=== PATIENT | male | born 1960 | race Caucasian/White ===

== ENCOUNTER → 2018-04-08 | Outpatient (CLI) | payer MEDICARE, BC ==
[~2018-04-08] MED LIST: ALPR-475 PO; ALPR0.5T10 PO; AMOX500T PO; ASPI-496 PO; ASPI81TA45 PO; BROM1.7D9 OP; CALC0.5C9 PO; CALC200T20 PO; CALC667C PO; CINA60TA PO; FLUO40CA9 PO; FURO20TA3 PO; GABA-826 PO; HYDR-3237 PO; LISI40TA PO; METO50TA82 PO; MINO2.5T PO; OXYC5CAP2 PO; SEVE800T8 PO; TIZA2TAB PO; [UNRECOGNIZED DRUG - OTHER] PO
== END | disposition home or self-care (01) ==
LOC: RAD 10:54
PROVIDERS: ATTEND Internal Medicine Cardiovascular Disease
DX: R06.02 Shortness of breath (principal)
CPT/HCPCS: 71046

== ENCOUNTER 2018-06-03 08:36 | Inpatient (IN) | payer MEDICARE, BC ==
[~2018-06-03] VITALS: Ht 185.4 cm; Wt 102.4 kg
--- NOTE | 2018-06-03 09:36 | NUR ---
HOUSING LIAISON: PT NOW VERBALIZES HE FEELS LIKE PASSING OUT. EKG COMPLETED.
--- NOTE | 2018-06-03 09:45 | NUR ---
PT TO ROOM, CONTACT WITH PT, 57 YR OLD MALE HERE WITH C/O "MY BLOOD PRESSURE IS VERY LOW. 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 TOOK OFF APPROX 3L LAST NIGHT. I WAS UNDER A BLANKET SHAKING. HAD 102 FEVER, TOOK 1000MG TYLENOL APPROX 6AM" PT ALSO WITH PAIN IN CHEST (BEGAN APPROX 0100) PT REPORTS "3 HEART VALVES WITH CALCIFICATION AND THE ONE THAT WORKS HAS A HOLE"
--- NOTE | 2018-06-03 10:19 | NUR ---
Patient states that he only produces a few drops of urine every other day. MD aware and UA canceled.
[2018-06-03] MEDS ORDERED: VANCOMYCIN 2,000 MG in SODIUM CHLORIDE 0.9% 500 ML IV ONE (10:30)
[2018-06-03] MEDS ORDERED: PIPERACILLIN/TAZO/PMX 3.375GM 50 ML IVPB ONE (10:30)
[2018-06-03] MEDS ORDERED: VANCOMYCIN PER PHARMACY MC ONE (10:30)
[2018-06-03] MEDS ORDERED: SODIUM CHLORIDE 0.9% 1,000ML IVBOLUS ONE ×3 (10:30→13:00)
[2018-06-03] MEDS ORDERED: PHARMACOKINETIC CONSULTATION MC ONE ×2 (10:30→14:30)
[2018-06-03 11:09] LABS: ALANINE AMINOTRANSFERASE 18 U/L (12-78); ALBUMIN 2.8 g/dL (3.4-5.0); ANION GAP 10 mmol/L (5-15); CALCIUM 9.4 mg/dL (8.5-10.1); CHLORIDE 90 mmol/L (98-107)
[2018-06-03 11:14] LABS: ALKALINE PHOSPHATASE 84 U/L (45-117); BILIRUBIN,TOTAL 0.4 mg/dL (0.2-1.0); TROPONIN I < 0.015 ng/mL (0.000-0.045)
--- NOTE | 2018-06-03 11:16 | NUR ---
BP improved after 500mL NS bolus. aware. No other needs.
[2018-06-03] MEDS ORDERED: PIPERACILLIN/TAZO/PMX 3.375GM 50 ML ONE (11:24)
[2018-06-03 11:35] LABS: CELLS COUNTED 7
[2018-06-03 11:36] LABS: MEAN CORPUSCULAR HEMOGLOBIN 30.7 pg (27.5-34.5); MEAN CORPUSCULAR HGB CONC 32.6 g/dL (33.2-36.2); MEAN CORPUSCULAR VOLUME 94.1 fL (81-97); MEAN PLATELET VOLUME 9.4 fL (7.4-10.4); PLATELET COUNT 78 x10^3/uL (130-400); RED BLOOD COUNT 2.71 x10^6/uL (4.38-5.82); RED CELL DISTRIBUTION WIDTH 15.4 % (9.4-14.8)
--- NOTE | 2018-06-03 11:37 | NUR ---
Zosyn hung and 500mL NS hung. No other needs.
[2018-06-03 11:47] LABS: MD YES
[2018-06-03 11:48] LABS: BAND#(MANUAL) 0.22 x10^3/uL; BANDS%(MANUAL) 2 % (0-7); BASOS#(MANUAL) 0.11 x10^3/uL (0-0.1); BASOS% (MANUAL) 1 % (0-1); EOS#(MANUAL) 0.11 x10^3/uL (0.0-0.4); EOS% (MANUAL) 1 % (1-7); LYMPH#(MANUAL) 0.56 x10^3/uL (1-3.4); LYMPHS% (MANUAL) 5 % (22-44); MONOS#(MANUAL) 0.56 x10^3/uL (0.3-2.7); MONOS% (MANUAL) 5 % (2-9); SEG#(MANUAL) 9.63 x10^3/uL (1.8-6.8); SEGS% (MANUAL) 86 % (42-75)
[2018-06-03 11:50] LABS: ANISOCYTOSIS 1+
[2018-06-03 11:58] LABS: <PLATELET ESTIMATE> DECREASED; LARGE PLATELETS 1+; OVALOCYTES 1+
--- NOTE | 2018-06-03 12:39 | NUR ---
Jorge camara. Mildly hypotensive after second bolus. No other needs.
[2018-06-03] MEDS ORDERED: AMLO-150 PO (12:43)
[2018-06-03] MEDS ORDERED: SODIUM CHLORIDE 0.9% 1,000 ML IV SCH (13:33)
--- NOTE | 2018-06-03 13:38 | NUR ---
Patient slightly more hypotenisve. Foot of bed elevated.
--- NOTE | 2018-06-03 13:49 | NUR ---
Report to MARISOL Hamilton.
--- NOTE | 2018-06-03 13:53 | NUR ---
BP improved. MD aware. MD states to hold 500ml NS bolus.
[2018-06-03] MEDS ORDERED: BISACODYL 10 MG SUPP PR PRN (14:00)
[2018-06-03] MEDS ORDERED: POLYETHYLENE GLYCOL 17 GM PACKET PO PRN (14:00)
[2018-06-03] MEDS ORDERED: VANCOMYCIN PER PHARMACY MC PRN (14:00)
[2018-06-03] MEDS ORDERED: ONDANSETRON ODT 4 MG PO PRN (14:00)
[2018-06-03] MEDS ORDERED: ONDANSETRON 2MG/ML, 2ML IVPush PRN (14:00)
[2018-06-03] MEDS ORDERED: PHARMACOKINETIC MONITORING MC PRN (14:30)
[2018-06-03] MEDS: HEPARIN 5,000 UNITS/ML, 1ML SQ SCH ×2 (14:46→23:07)
[2018-06-03] MEDS: MIDODRINE 5 MG TABLET PO SCH ×2 (14:46→20:33)
[2018-06-03] MEDS ORDERED: NOREPINEPHRINE 4 MG in SODIUM CHLORIDE 0.9% 246 ML IV PRN (16:00)
[2018-06-03 16:22] LABS: RAPID INFLUENZA A Negative (Negative); RAPID INFLUENZA B Negative (Negative)
[2018-06-03] MEDS: MEROPENEM 500 MG in SODIUM CHLORIDE 0.9% 100 ML IV SCH (16:34)
[2018-06-03] MEDS ORDERED: PIPERACILLIN/TAZO 0.75 GM in SODIUM CHLORIDE 0.9% 50 ML IV SCH (20:00)
[2018-06-03] MEDS ORDERED: PIPERACILLIN/TAZO 2.25 GM in SODIUM CHLORIDE 0.9% 50 ML IV SCH (20:00)
[2018-06-03 20:30] VITALS: BP 103/50
[2018-06-03] MEDS: GENTAMICIN OINT 0.1% 15GM TP SCH (21:00)
[2018-06-04 04:00] VITALS: BP 102/47
[2018-06-04] MEDS: MEROPENEM 500 MG in SODIUM CHLORIDE 0.9% 100 ML IV SCH ×2 (04:22→16:47)
[2018-06-04 04:49] LABS: ALBUMIN 2.2 g/dL (3.4-5.0); ANION GAP 8 mmol/L (5-15); CALCIUM 8.4 mg/dL (8.5-10.1); CHLORIDE 94 mmol/L (98-107)
[2018-06-04 04:52] LABS: MEAN CORPUSCULAR HEMOGLOBIN 31.2 pg (27.5-34.5); MEAN CORPUSCULAR VOLUME 94.7 fL (81-97); MEAN PLATELET VOLUME 9.1 fL (7.4-10.4); PLATELET COUNT 69 x10^3/uL (130-400); RED BLOOD COUNT 2.36 x10^6/uL (4.38-5.82); RED CELL DISTRIBUTION WIDTH 15.1 % (9.4-14.8)
[2018-06-04 04:59] LABS: % IRON SATURATION 14 % (20-55); ALANINE AMINOTRANSFERASE 13 U/L (12-78); ALKALINE PHOSPHATASE 51 U/L (45-117); BILIRUBIN,TOTAL 0.5 mg/dL (0.2-1.0); IRON LEVEL 28 mcg/dL (65-175); TOTAL IRON BINDING CAPACITY 196 mcg/dL (250-450); TOTAL PROTEIN 5.3 g/dL (6.4-8.2); VANCOMYCIN,RANDOM 23.9 mcg/mL
[2018-06-04 05:49] LABS: BASOPHILS # (AUTO) 0.02 x10^3/uL (0-0.1); BASOPHILS % (AUTO) 0 % (0-1); EOSINOPHILS # (AUTO) 0.01 x10^3/uL (0-0.4); EOSINOPHILS % (AUTO) 0 % (1-7); LYMPHOCYTES # (AUTO) 0.31 x10^3/uL (1-3.4); LYMPHOCYTES % (AUTO) 4 % (22-44); MD SCAN; MONOCYTES # (AUTO) 0.34 x10^3/uL (0.2-0.8); MONOCYTES % (AUTO) 4 % (2-9); NEUTROPHILS % (AUTO) 91 % (42-75)
[2018-06-04] MEDS ORDERED: ERGOCALCIFEROL 50,000 UNIT CAPSULE PO SCH (07:00)
[2018-06-04] MEDS: HEPARIN 5,000 UNITS/ML, 1ML SQ SCH ×2 (08:29→16:56)
[2018-06-04] MEDS: MIDODRINE 5 MG TABLET PO SCH ×3 (08:29→20:46)
[2018-06-04] MEDS: SENNA/DOCUSATE TABLET PO SCH (08:29)
[2018-06-04 11:04] VITALS: BP 125/61
[2018-06-04] MEDS ORDERED: DARBEPOETIN 100 MCG/ML SQ SCH (12:00)
[2018-06-04 13:50] VITALS: BP 135/68
[2018-06-04] MEDS: IRON SUCROSE COMPLEX 100MG/5ML IVPush SCH (16:49)
[2018-06-04] MEDS: CALCITRIOL 0.25 MCG CAPSULE PO SCH (16:57)
[2018-06-04 19:25] VITALS: BP 130/64
[2018-06-04] MEDS: GENTAMICIN OINT 0.1% 15GM TP SCH (20:12)
[2018-06-04] MEDS: ACETAMINOPHEN 325 MG TABLET PO PRN (20:46)
[2018-06-04] MEDS: GUAIFENESIN/DM 200-20MG, 10ML UDC PO PRN (21:49)
[2018-06-05] MEDS: HEPARIN 5,000 UNITS/ML, 1ML SQ SCH ×3 (01:00→16:33)
[2018-06-05 01:19] VITALS: BP 124/67
[2018-06-05] MEDS: MEROPENEM 500 MG in SODIUM CHLORIDE 0.9% 100 ML IV SCH ×2 (04:23→16:33)
[2018-06-05] MEDS: GUAIFENESIN/DM 200-20MG, 10ML UDC PO PRN ×2 (04:26→15:14)
[2018-06-05 05:48] LABS: ALBUMIN 2.3 g/dL (3.4-5.0); ANION GAP 9 mmol/L (5-15); CALCIUM 8.4 mg/dL (8.5-10.1); CHLORIDE 92 mmol/L (98-107)
[2018-06-05 05:53] LABS: MEAN CORPUSCULAR HEMOGLOBIN 31.9 pg (27.5-34.5); MEAN CORPUSCULAR HGB CONC 33.5 g/dL (33.2-36.2); MEAN CORPUSCULAR VOLUME 95.4 fL (81-97); MEAN PLATELET VOLUME 9.6 fL (7.4-10.4); PLATELET COUNT 68 x10^3/uL (130-400); RED BLOOD COUNT 2.35 x10^6/uL (4.38-5.82); RED CELL DISTRIBUTION WIDTH 14.8 % (9.4-14.8)
[2018-06-05 06:42] LABS: BASOPHILS # (AUTO) 0.02 x10^3/uL (0-0.1); BASOPHILS % (AUTO) 0 % (0-1); EOSINOPHILS # (AUTO) 0.12 x10^3/uL (0-0.4); EOSINOPHILS % (AUTO) 3 % (1-7); LYMPHOCYTES # (AUTO) 0.26 x10^3/uL (1-3.4); LYMPHOCYTES % (AUTO) 7 % (22-44); MD SCAN; MONOCYTES # (AUTO) 0.35 x10^3/uL (0.2-0.8); MONOCYTES % (AUTO) 9 % (2-9); NEUTROPHILS # (AUTO) 3.09 x10^3/uL (1.8-6.8); NEUTROPHILS % (AUTO) 81 % (42-75)
[2018-06-05 07:52] VITALS: BP 119/54
[2018-06-05] MEDS: CALCITRIOL 0.25 MCG CAPSULE PO SCH (09:41)
[2018-06-05] MEDS: MIDODRINE 5 MG TABLET PO SCH ×3 (09:41→21:06)
[2018-06-05] MEDS: SENNA/DOCUSATE TABLET PO SCH (09:42)
[2018-06-05] MEDS: IRON SUCROSE COMPLEX 100MG/5ML IVPush SCH (12:31)
[2018-06-05 14:24] VITALS: BP 138/65
[2018-06-05 20:30] VITALS: BP 166/78
[2018-06-05] MEDS ORDERED: GENTAMICIN CRM 0.1%, 30GM TP SCH (21:00)
[2018-06-06 00:52] VITALS: BP 150/70
[2018-06-06] MEDS: HEPARIN 5,000 UNITS/ML, 1ML SQ SCH ×2 (01:00→09:00)
[2018-06-06] MEDS: MEROPENEM 500 MG in SODIUM CHLORIDE 0.9% 100 ML IV SCH (04:27)
[2018-06-06] MEDS: ACETAMINOPHEN 325 MG TABLET PO PRN ×2 (04:30→09:59)
[2018-06-06 05:38] LABS: CHLORIDE 93 mmol/L (98-107)
[2018-06-06 05:43] LABS: MEAN CORPUSCULAR HGB CONC 32.9 g/dL (33.2-36.2); MEAN CORPUSCULAR VOLUME 94.4 fL (81-97); RED BLOOD COUNT 2.44 x10^6/uL (4.38-5.82); RED CELL DISTRIBUTION WIDTH 15.1 % (9.4-14.8)
[2018-06-06 05:48] LABS: ALANINE AMINOTRANSFERASE 14 U/L (12-78); ALBUMIN 2.3 g/dL (3.4-5.0); ALKALINE PHOSPHATASE 73 U/L (45-117); ANION GAP 11 mmol/L (5-15); BILIRUBIN,TOTAL 0.5 mg/dL (0.2-1.0); CALCIUM 8.3 mg/dL (8.5-10.1); TOTAL PROTEIN 5.6 g/dL (6.4-8.2); VANCOMYCIN,RANDOM 17.5 mcg/mL
[2018-06-06 06:32] LABS: BASOPHILS # (AUTO) 0.01 x10^3/uL (0-0.1); BASOPHILS % (AUTO) 0 % (0-1); EOSINOPHILS # (AUTO) 0.11 x10^3/uL (0-0.4); EOSINOPHILS % (AUTO) 3 % (1-7); LYMPHOCYTES # (AUTO) 0.27 x10^3/uL (1-3.4); LYMPHOCYTES % (AUTO) 9 % (22-44); MD SCAN; MEAN PLATELET VOLUME 9.1 fL (7.4-10.4); MONOCYTES # (AUTO) 0.32 x10^3/uL (0.2-0.8); MONOCYTES % (AUTO) 10 % (2-9); NEUTROPHILS # (AUTO) 2.45 x10^3/uL (1.8-6.8); NEUTROPHILS % (AUTO) 77 % (42-75); PLATELET COUNT 81 x10^3/uL (130-400)
[2018-06-06] MEDS ORDERED: MEROPENEM 1 GM in SODIUM CHLORIDE 0.9% 100 ML IV SCH (08:00)
[2018-06-06] MEDS: MIDODRINE 5 MG TABLET PO SCH ×2 (09:00→15:38)
[2018-06-06 09:13] VITALS: BP 134/68
[2018-06-06] MEDS: CALCITRIOL 0.25 MCG CAPSULE PO SCH (09:58)
[2018-06-06] MEDS: SENNA/DOCUSATE TABLET PO SCH (09:59)
[2018-06-06] MEDS ORDERED: VANCOMYCIN PMX 1GM/200ML 200 ML IVPB ONE (10:00)
[2018-06-06] MEDS ORDERED: CEFD300C37 PO (12:57)
[2018-06-06] MEDS ORDERED: ONDA4TAB13 PO (12:57)
[2018-06-06] MEDS ORDERED: CALC0.25 PO (12:57)
[2018-06-06] MEDS ORDERED: AZIT500T PO (12:57)
[2018-06-06] MEDS: IRON SUCROSE COMPLEX 100MG/5ML IVPush SCH (12:57)
[2018-06-06] MEDS ORDERED: GENT15CR6 TP (12:57)
[2018-06-06] MEDS ORDERED: ERGO500017 PO (12:57)
[2018-06-06] MEDS ORDERED: GUAI1TBM11 PO (12:57)
[2018-06-06 14:08] VITALS: BP 156/82
[2018-06-06] MEDS ORDERED: MEROPENEM 500 MG in SODIUM CHLORIDE 0.9% 100 ML IV ONE (15:00)
[2018-06-07] MEDS ORDERED: MEROPENEM 1 GM in SODIUM CHLORIDE 0.9% 100 ML IV SCH (08:00)
[2018-06-15] MEDS ORDERED: MINO2.5T PO (12:27)
== END 2018-06-06 17:14 | disposition home or self-care (01) | DRG 871 ==
LOC: ED 11:35 → EDIP 13:08 → CCU 14:09 → 3NE 06-04 10:33
PROVIDERS: ADMIT Internal Medicine; ATTEND Internal Medicine
PROC: 3E1M39Z Irrigation of Peritoneal Cavity using Dialysate, Percutaneous Approach (ICD-10-PCS; principal; 2018-06-03)
PROC: 3E1M39Z Irrigation of Peritoneal Cavity using Dialysate, Percutaneous Approach (ICD-10-PCS; 2018-06-04)
PROC: 3E1M39Z Irrigation of Peritoneal Cavity using Dialysate, Percutaneous Approach (ICD-10-PCS; 2018-06-05)
DX: A41.9 Sepsis, unspecified organism (principal); N18.6 End stage renal disease; E43 Unspecified severe protein-calorie malnutrition; I12.0 Hypertensive chronic kidney disease with stage 5 chronic kidney disease or end stage renal disease; E87.1 Hypo-osmolality and hyponatremia; N25.81 Secondary hyperparathyroidism of renal origin; R65.20 Severe sepsis without septic shock; D63.8 Anemia in other chronic diseases classified elsewhere; D69.6 Thrombocytopenia, unspecified; E55.9 Vitamin D deficiency, unspecified; E66.9 Obesity, unspecified; N28.1 Cyst of kidney, acquired; E87.5 Hyperkalemia; E87.6 Hypokalemia; G47.33 Obstructive sleep apnea (adult) (pediatric); G62.9 Polyneuropathy, unspecified; N25.0 Renal osteodystrophy; Z82.71 Family history of polycystic kidney; Z68.29 Body mass index [BMI] 29.0-29.9, adult; Z90.5 Acquired absence of kidney; Z99.2 Dependence on renal dialysis; J40 Bronchitis, not specified as acute or chronic
CPT/HCPCS: 36415; 71045; 80053; 80069; 80202; 82306; 82533; 82728; 83540; 83550; 83605; 83735; 83880; 83970; 84100; 84145; 84484; 84550; 85025; 87040; 87070; 87081; 87205; 87400; 89051; 93005; 96361; 96365; 96366; 96368; 99291; G0378; J0881; J1644; J1756; J2185; J2543; J3370; J7030; J7040

== ENCOUNTER 2019-02-10 11:14 | Emergency (ER) | payer MEDICARE, BC ==
[~2019-02-10] VITALS: Ht 185.4 cm; Wt 100.8 kg
[~2019-02-10 11:14] MED LIST changes: -ALPR-475 PO; +ALPR0.5T7 PO; +AMLO-150 PO; +AZIT500T PO; +CALC0.25 PO; +CEFD300C37 PO; +ERGO500017 PO; +GENT15CR6 TP; +GUAI1TBM11 PO; +ONDA4TAB13 PO; -TIZA2TAB PO; +TIZA2TAB2 PO
--- NOTE | 2019-02-10 11:45 | NUR ---
PT HAS CO CHEST PAIN SINCE THIS AM. LARGE LUMP IN RIGHT UPPER CHEST. PAIN RADIATES TO RIGHT NECK. ERYTHEMA FROM BREAST DOWN TO ANTERIOR ABDOMEN. PT ON DIALYSIS, PERITONEAL. FISTULA TO LEFT ARM. BRUIT PRESENT. CARDAIC MONITOR APPLIED. VS STABLE.
[2019-02-10] MEDS ORDERED: KETOROLAC 30 MG/1 ML ONE (12:26)
[2019-02-10] MEDS ORDERED: KETOROLAC 30 MG/1 ML IVPush ONE (12:30)
[2019-02-10] MEDS ORDERED: SODIUM CHLORIDE FLUSH 10ML SYR IVF ONE (12:30)
[2019-02-10 12:31] VITALS: BP 121/71
--- NOTE | 2019-02-10 12:31 | NUR ---
MEDICATED FOR PIAN PER ORDERS. IV ESTABLISHED
[2019-02-10 12:48] LABS: BASOPHILS # (AUTO) 0.02 x10^3/uL (0-0.1); BASOPHILS % (AUTO) 0 % (0-1); EOSINOPHILS % (AUTO) 3 % (1-7); LYMPHOCYTES # (AUTO) 0.58 x10^3/uL (1-3.4); LYMPHOCYTES % (AUTO) 8 % (22-44); MD NO; MEAN CORPUSCULAR HEMOGLOBIN 33.2 pg (27.5-34.5); MEAN CORPUSCULAR HGB CONC 33.2 g/dL (33.2-36.2); MEAN CORPUSCULAR VOLUME 100.1 fL (81-97); MONOCYTES # (AUTO) 0.51 x10^3/uL (0.2-0.8); MONOCYTES % (AUTO) 7 % (2-9); NEUTROPHILS # (AUTO) 5.95 x10^3/uL (1.8-6.8); NEUTROPHILS % (AUTO) 82 % (42-75); PLATELET COUNT 131 x10^3/uL (130-400); RED BLOOD COUNT 2.81 x10^6/uL (4.38-5.82); RED CELL DISTRIBUTION WIDTH 15.4 % (9.4-14.8)
[2019-02-10 12:55] LABS: INTERNATIONAL NORMALIZED RATIO 0.97 (0.93-1.1); PROTHROMBIN TIME 10.2 Seconds (9.6-11.5)
[2019-02-10 13:00] LABS: ALBUMIN 2.5 g/dL (3.4-5.0); ANION GAP 12 mmol/L (5-15); CALCIUM 8.3 mg/dL (8.5-10.1); CHLORIDE 88 mmol/L (98-107)
[2019-02-10 13:05] LABS: ALANINE AMINOTRANSFERASE 28 U/L (12-78); ALKALINE PHOSPHATASE 125 U/L (45-117); TOTAL PROTEIN 5.9 g/dL (6.4-8.2); TROPONIN I 0.044 ng/mL (0.000-0.045)
[2019-02-10] MEDS ORDERED: OMNIPAQUE 350 MG/ML, 75ML BOTTLE ONE (13:19)
--- NOTE | 2019-02-10 13:41 | NUR ---
PT STATES PAIN IS RELEIVED. VS STABLE. RESTING ON GURNEY
--- NOTE | 2019-02-10 14:38 | NUR ---
Patient/Caregiver given discharge instructions and they have confirmed that they understand the instructions. Patient ambulatory with steady gait.
== END 2019-02-10 14:39 | disposition home or self-care (01) ==
LOC: ED 13:57
DX: S20.211A Contusion of right front wall of thorax, initial encounter (principal); I10 Essential (primary) hypertension
CPT/HCPCS: 36415; 71045; 71260; 80053; 83880; 84484; 85025; 85610; 93005; 96374; 99284; J1885; Q9967

== ENCOUNTER 2019-02-14 12:27 | Inpatient (IN) | payer MEDICARE, BC ==
[~2019-02-14] VITALS: Ht 185.4 cm; Wt 95.1 kg
--- NOTE | 2019-02-14 13:01 | NUR ---
TO RM 35 FROM TRIAGE AND PLACED ON MONITOR. PT A&O X4. STATES HE FELT LIGHTHEADED SINCE AWAKENING THIS MORNING. PT WENT TO SCHEDULED CARDIO APPT AND REFERRED TO ER FOR IRREGULAR RHYTHM. PT STATES HE CONTINUES TO FEEL LIGHTHEAD. NOTED TO HAVE BIGIMNAL BEATS ON MONITOR.
[2019-02-14] MEDS ORDERED: SODIUM CHLORIDE FLUSH 10ML SYR IVF ONE (13:30)
[2019-02-14 13:36] LABS: BASOPHILS # (AUTO) 0.04 x10^3/uL (0-0.1); BASOPHILS % (AUTO) 0 % (0-1); EOSINOPHILS # (AUTO) 0.38 x10^3/uL (0-0.4); EOSINOPHILS % (AUTO) 4 % (1-7); LYMPHOCYTES # (AUTO) 0.56 x10^3/uL (1-3.4); LYMPHOCYTES % (AUTO) 5 % (22-44); MD NO; MEAN CORPUSCULAR VOLUME 100.1 fL (81-97); MEAN PLATELET VOLUME 9.7 fL (7.4-10.4); MONOCYTES # (AUTO) 0.56 x10^3/uL (0.2-0.8); MONOCYTES % (AUTO) 5 % (2-9); NEUTROPHILS # (AUTO) 8.92 x10^3/uL (1.8-6.8); NEUTROPHILS % (AUTO) 85 % (42-75); PLATELET COUNT 142 x10^3/uL (130-400); RED BLOOD COUNT 3.03 x10^6/uL (4.38-5.82); RED CELL DISTRIBUTION WIDTH 14.9 % (9.4-14.8)
[2019-02-14 13:43] LABS: INTERNATIONAL NORMALIZED RATIO 0.93 (0.93-1.1); PROTHROMBIN TIME 9.8 Seconds (9.6-11.5)
--- NOTE | 2019-02-14 13:43 | NUR ---
SECOND EKG COMPLETED BY TECH. CONTINUE TO MONITOR PT.
[2019-02-14] MEDS ORDERED: NAPR-850 PO (13:44)
[2019-02-14 13:45] LABS: ALANINE AMINOTRANSFERASE 34 U/L (12-78); ANION GAP 12 mmol/L (5-15); CHLORIDE 82 mmol/L (98-107)
[2019-02-14 13:50] LABS: ALKALINE PHOSPHATASE 130 U/L (45-117); BILIRUBIN,TOTAL 1.3 mg/dL (0.2-1.0); T4 (THYROXINE) 6.8 mcg/dL (4.5-12.1); TOTAL PROTEIN 6.5 g/dL (6.4-8.2); TROPONIN I 0.103 ng/mL (0.000-0.045)
--- NOTE | 2019-02-14 14:29 | NUR ---
BREAK RN FOR PRIMARY RN RODRIGUEZ. PT RESTING IN POSITION OF COMFORT. DENIES ANY PAIN, CP, SOB OR NEED TO USE RESTROOM. VSS. SR ON MONITOR WITH SULLY NOTED, DISCUSSED LABS AND HEART RHYTHM WITH DR. ASHRAF, AWARE, NO NEW ORDERS RECEIVED FROM ERP. PT UP FOR RECHECK. CALL LIGHT IN REACH. FALL PRECAUTIONS IN PLACE. SIDE RAILS UPX2. A&OX4.
--- NOTE | 2019-02-14 14:49 | NUR ---
BEDSIDE REPORT AND CARE BACK TO PRIMARY MARISOL FRIAS. DIVING FISHER AT BEDSIDE FOR EVAL.
--- NOTE | 2019-02-14 15:40 | NUR ---
HOSPITALIST AT BEDSIDE.
[2019-02-14 15:53] LABS: TROPONIN I 0.141 ng/mL (0.000-0.045)
[2019-02-14] MEDS ORDERED: ONDANSETRON 2MG/ML, 2ML IVPush PRN (16:30)
[2019-02-14] MEDS ORDERED: GUAIFENESIN/DM 200-20MG, 10ML UDC PO PRN (16:30)
[2019-02-14] MEDS ORDERED: CYCLOBENZAPRINE 10 MG TABLET PO PRN (16:30)
[2019-02-14] MEDS ORDERED: SODIUM CHLORIDE FLUSH 10ML SYR IVF PRN (16:30)
[2019-02-14] MEDS ORDERED: hydrALAzine 20 MG/ML, 1ML IVPush PRN (16:30)
[2019-02-14] MEDS ORDERED: ONDANSETRON ODT 4 MG PO PRN (16:30)
[2019-02-14] MEDS ORDERED: POLYETHYLENE GLYCOL 17 GM PACKET PO PRN (16:30)
[2019-02-14 18:12] LABS: TROPONIN I 0.141 ng/mL (0.000-0.045)
--- NOTE | 2019-02-14 18:20 | NUR ---
REPORT TO PINEDA DAMON. PT TO BE TRANSPORTED
[2019-02-14 18:46] VITALS: BP 132/88
[2019-02-14 20:15] VITALS: BP 155/78
[2019-02-14] MEDS: CALCIUM ACETATE 667 MG CAPSULE PO SCH (20:53)
[2019-02-14] MEDS: GENTAMICIN CRM 0.1%, 30GM TP SCH (20:54)
[2019-02-14] MEDS: GABAPENTIN 100 MG CAPSULE PO SCH (20:58)
[2019-02-14] MEDS: ACETAMINOPHEN 325 MG TABLET PO PRN (20:59)
[2019-02-14 21:44] LABS: TROPONIN I 0.094 ng/mL (0.000-0.045)
[2019-02-15 00:43] VITALS: BP 156/79
[2019-02-15 03:42] LABS: BASOPHILS # (AUTO) 0.03 x10^3/uL (0-0.1); BASOPHILS % (AUTO) 0 % (0-1); EOSINOPHILS # (AUTO) 0.25 x10^3/uL (0-0.4); EOSINOPHILS % (AUTO) 3 % (1-7); LYMPHOCYTES # (AUTO) 0.65 x10^3/uL (1-3.4); LYMPHOCYTES % (AUTO) 9 % (22-44); MEAN CORPUSCULAR HEMOGLOBIN 33.3 pg (27.5-34.5); MEAN CORPUSCULAR HGB CONC 33.1 g/dL (33.2-36.2); MEAN CORPUSCULAR VOLUME 100.6 fL (81-97); MEAN PLATELET VOLUME 10.1 fL (7.4-10.4); MONOCYTES # (AUTO) 0.53 x10^3/uL (0.2-0.8); MONOCYTES % (AUTO) 7 % (2-9); NEUTROPHILS # (AUTO) 5.96 x10^3/uL (1.8-6.8); NEUTROPHILS % (AUTO) 80 % (42-75); PLATELET COUNT 116 x10^3/uL (130-400); RED BLOOD COUNT 2.78 x10^6/uL (4.38-5.82); RED CELL DISTRIBUTION WIDTH 14.9 % (9.4-14.8)
[2019-02-15 03:46] LABS: MD NO
[2019-02-15 03:47] LABS: ALANINE AMINOTRANSFERASE 26 U/L (12-78); ALBUMIN 2.5 g/dL (3.4-5.0); ANION GAP 16 mmol/L (5-15); CALCIUM 8.9 mg/dL (8.5-10.1); CHLORIDE 84 mmol/L (98-107)
[2019-02-15 03:51] LABS: ALKALINE PHOSPHATASE 103 U/L (45-117); BILIRUBIN,TOTAL 1.1 mg/dL (0.2-1.0); TOTAL PROTEIN 5.6 g/dL (6.4-8.2); TROPONIN I 0.098 ng/mL (0.000-0.045)
[2019-02-15] MEDS ORDERED: REGADENOSON 0.4 MG/5 ML SYRINGE ONE (09:09)
[2019-02-15 11:18] VITALS: BP 135/74
[2019-02-15] MEDS: ACETAMINOPHEN 325 MG TABLET PO PRN (11:43)
[2019-02-15] MEDS: CALCIUM ACETATE 667 MG CAPSULE PO SCH ×3 (11:43→21:09)
[2019-02-15] MEDS: GABAPENTIN 100 MG CAPSULE PO SCH ×3 (11:44→21:09)
[2019-02-15 15:47] VITALS: BP 131/67
[2019-02-15] MEDS: METOPROLOL SUCCINATE 25 MG TAB.ER.24H PO SCH (17:58)
[2019-02-15 17:59] VITALS: BP 136/68
[2019-02-15] MEDS ORDERED: METOPROLOL SUCCINATE 25 MG TAB.ER.24H PO SCH (18:00)
[2019-02-15 20:48] VITALS: BP 135/70
[2019-02-15] MEDS: GENTAMICIN CRM 0.1%, 30GM TP SCH (21:00)
[2019-02-15] MEDS: TRAZODONE 50MG TABLET PO PRN (21:08)
[2019-02-16 02:26] VITALS: BP 104/65
[2019-02-16 05:24] LABS: BASOPHILS # (AUTO) 0.03 x10^3/uL (0-0.1); BASOPHILS % (AUTO) 1 % (0-1); EOSINOPHILS # (AUTO) 0.21 x10^3/uL (0-0.4); EOSINOPHILS % (AUTO) 4 % (1-7); LYMPHOCYTES % (AUTO) 10 % (22-44); MD NO; MEAN CORPUSCULAR HEMOGLOBIN 32.4 pg (27.5-34.5); MEAN CORPUSCULAR HGB CONC 32.5 g/dL (33.2-36.2); MEAN CORPUSCULAR VOLUME 99.7 fL (81-97); MEAN PLATELET VOLUME 9.6 fL (7.4-10.4); MONOCYTES # (AUTO) 0.41 x10^3/uL (0.2-0.8); MONOCYTES % (AUTO) 7 % (2-9); NEUTROPHILS # (AUTO) 4.71 x10^3/uL (1.8-6.8); NEUTROPHILS % (AUTO) 79 % (42-75); PLATELET COUNT 117 x10^3/uL (130-400); RED CELL DISTRIBUTION WIDTH 15.3 % (9.4-14.8)
[2019-02-16 05:34] LABS: ALBUMIN 2.5 g/dL (3.4-5.0); ANION GAP 13 mmol/L (5-15); CALCIUM 9.5 mg/dL (8.5-10.1); CHLORIDE 87 mmol/L (98-107)
[2019-02-16 05:38] LABS: ALANINE AMINOTRANSFERASE 23 U/L (12-78); ALKALINE PHOSPHATASE 87 U/L (45-117); BILIRUBIN,TOTAL 0.9 mg/dL (0.2-1.0); TOTAL PROTEIN 5.8 g/dL (6.4-8.2)
[2019-02-16 07:30] VITALS: BP 112/66
[2019-02-16 10:30] VITALS: BP 115/67
[2019-02-16] MEDS: CALCIUM ACETATE 667 MG CAPSULE PO SCH ×3 (10:51→20:56)
[2019-02-16] MEDS: GABAPENTIN 100 MG CAPSULE PO SCH ×3 (10:51→20:55)
[2019-02-16] MEDS: METOPROLOL SUCCINATE 25 MG TAB.ER.24H PO SCH (10:53)
[2019-02-16 13:24] VITALS: BP 122/55
[2019-02-16 19:44] VITALS: BP 113/63
[2019-02-16] MEDS ORDERED: SENNA/DOCUSATE TABLET PO PRN (20:00)
[2019-02-16] MEDS: TRAZODONE 50MG TABLET PO PRN (20:55)
[2019-02-16] MEDS: GENTAMICIN CRM 0.1%, 30GM TP SCH (20:56)
[2019-02-17 01:32] VITALS: BP 97/55
[2019-02-17] MEDS: ACETAMINOPHEN 325 MG TABLET PO PRN ×4 (04:00→22:56)
[2019-02-17 07:29] VITALS: BP 112/59
[2019-02-17] MEDS: CALCIUM ACETATE 667 MG CAPSULE PO SCH ×3 (08:42→20:38)
[2019-02-17] MEDS: GABAPENTIN 100 MG CAPSULE PO SCH ×3 (08:42→20:38)
[2019-02-17 13:36] VITALS: BP 110/58
[2019-02-17] MEDS: METOPROLOL SUCCINATE 25 MG TAB.ER.24H PO SCH (16:30)
[2019-02-17 16:32] VITALS: BP 107/63
[2019-02-17 20:00] VITALS: BP 98/56
[2019-02-17] MEDS: GENTAMICIN CRM 0.1%, 30GM TP SCH (20:39)
[2019-02-17] MEDS: TRAZODONE 50MG TABLET PO PRN (22:46)
[2019-02-18 02:00] VITALS: BP 84/52
[2019-02-18 02:32] VITALS: BP 101/65
[2019-02-18 08:32] LABS: ALBUMIN 2.5 g/dL (3.4-5.0); ANION GAP 16 mmol/L (5-15); CALCIUM 9.3 mg/dL (8.5-10.1); CHLORIDE 90 mmol/L (98-107)
[2019-02-18] MEDS: CALCIUM ACETATE 667 MG CAPSULE PO SCH (08:35)
[2019-02-18] MEDS: GABAPENTIN 100 MG CAPSULE PO SCH (08:35)
[2019-02-18 08:40] VITALS: BP 107/69
[2019-02-18] MEDS ORDERED: METO25TA91 PO (12:02)
[2019-02-18 12:19] VITALS: BP 109/61
== END 2019-02-18 14:47 | disposition home or self-care (01) | DRG 308 ==
LOC: ED 13:28 → EDIP 15:17 → 5SO 18:15
PROVIDERS: ADMIT Family Medicine; ATTEND Internal Medicine
PROC: 3E1M39Z Irrigation of Peritoneal Cavity using Dialysate, Percutaneous Approach (ICD-10-PCS; principal; 2019-02-14)
PROC: 3E1M39Z Irrigation of Peritoneal Cavity using Dialysate, Percutaneous Approach (ICD-10-PCS; 2019-02-15)
PROC: 3E1M39Z Irrigation of Peritoneal Cavity using Dialysate, Percutaneous Approach (ICD-10-PCS; 2019-02-16)
PROC: 3E1M39Z Irrigation of Peritoneal Cavity using Dialysate, Percutaneous Approach (ICD-10-PCS; 2019-02-17)
DX: I49.3 Ventricular premature depolarization (principal); N18.6 End stage renal disease; Q61.2 Polycystic kidney, adult type; R17 Unspecified jaundice; E44.0 Moderate protein-calorie malnutrition; E87.1 Hypo-osmolality and hyponatremia; I12.0 Hypertensive chronic kidney disease with stage 5 chronic kidney disease or end stage renal disease; I49.9 Cardiac arrhythmia, unspecified; D63.1 Anemia in chronic kidney disease; D72.829 Elevated white blood cell count, unspecified; E87.70 Fluid overload, unspecified; F41.9 Anxiety disorder, unspecified; G47.33 Obstructive sleep apnea (adult) (pediatric); G62.9 Polyneuropathy, unspecified; I42.9 Cardiomyopathy, unspecified; N25.0 Renal osteodystrophy; Z82.49 Family history of ischemic heart disease and other diseases of the circulatory system; Z82.71 Family history of polycystic kidney; Z99.2 Dependence on renal dialysis; Z90.5 Acquired absence of kidney; Z87.891 Personal history of nicotine dependence; Z68.27 Body mass index [BMI] 27.0-27.9, adult
CPT/HCPCS: 36415; 71045; 78452; 80048; 80053; 82040; 83735; 83880; 84100; 84436; 84443; 84484; 85025; 85610; 85730; 86706; 86803; 87340; 90945; 93005; 93017; 93306; G0378; J2785; A9502; C9898